=== PATIENT | female | born 1985 | race Caucasian/White ===

== ENCOUNTER 2017-08-20 14:42 | Emergency (ER) | payer OTHER ==
[~2017-08-20] VITALS: Ht 160 cm; Wt 53.6 kg
[2017-08-20 15:23] LABS: INFLUENZA TYPE A NEGATIVE FOR TYPE A (NEGATIVE); INFLUENZA TYPE B NEGATIVE FOR TYPE B (NEGATIVE)
[2017-08-20 16:00] VITALS: BP 118/66
== END 2017-08-20 16:48 | disposition home or self-care (01) ==
LOC: EMS 14:46
DX: H66.93 Otitis media, unspecified, bilateral (principal); H66.013 Acute suppurative otitis media with spontaneous rupture of ear drum, bilateral
CPT/HCPCS: 87804; 99284